=== PATIENT | male | born 1990 | race Caucasian/White ===

== ENCOUNTER 2021-03-01 14:04 | Emergency (ER) | payer OTHER ==
[~2021-03-01] VITALS: Ht 170.2 cm; Wt 63.5 kg
[2021-03-01 15:51] VITALS: BP 141/75
== END 2021-03-01 15:51 | disposition home or self-care (01) ==
LOC: M.ERS 14:04
DX: S61.217A Laceration without foreign body of left little finger without damage to nail, initial encounter (principal); F17.210 Nicotine dependence, cigarettes, uncomplicated; W23.0XXA Caught, crushed, jammed, or pinched between moving objects, initial encounter; Y93.89 Activity, other specified; Y92.89 Other specified places as the place of occurrence of the external cause; Y99.8 Other external cause status

== ENCOUNTER 2021-04-22 09:14 | Emergency (ER) | payer OTHER ==
[~2021-04-22] VITALS: Ht 170.2 cm; Wt 65.8 kg
[2021-04-22] MEDS ORDERED: FLEXERIL PO (10:49)
[2021-04-22] MEDS ORDERED: HYDROCODON-ACE1 EAC7 PO (10:49)
[2021-04-22 11:14] VITALS: BP 132/58
== END 2021-04-22 11:15 | disposition home or self-care (01) ==
LOC: M.ERS 09:14
DX: S39.011A Strain of muscle, fascia and tendon of abdomen, initial encounter (principal); F17.210 Nicotine dependence, cigarettes, uncomplicated; X58.XXXA Exposure to other specified factors, initial encounter; Y93.89 Activity, other specified; Y92.89 Other specified places as the place of occurrence of the external cause; Y99.8 Other external cause status

== ENCOUNTER 2021-06-04 14:18 | Emergency (ER) | payer OTHER ==
[~2021-06-04] VITALS: Ht 170.2 cm; Wt 66.7 kg
[~2021-06-04 14:18] MED LIST: FLEXERIL PO; HYDROCODON-ACE1 EAC7 PO
[2021-06-04] MEDS ORDERED: MEDROLDOSEPACK PO (16:12)
[2021-06-04] MEDS ORDERED: NAPROSYN500 MG PO (16:12)
[2021-06-04] MEDS ORDERED: HYDROCODON-ACE1 EAC7 PO (16:45)
[2021-06-04 17:25] VITALS: BP 132/72
== END 2021-06-04 17:26 | disposition home or self-care (01) ==
LOC: M.ERS 14:18
DX: M25.511 Pain in right shoulder (principal); F17.210 Nicotine dependence, cigarettes, uncomplicated